=== PATIENT | male | born 1990 | race American Indian/Alaskan Native ===

== ENCOUNTER 2017-11-04 13:47 | Emergency (ER) | payer OTHER ==
[2017-11-04] MEDS ORDERED: FIORICET PO ONE (16:04)
--- NOTE | 2017-11-04 16:10 | Emergency Department Report ---
HPI - General Chief Complaint: Pain General Time Seen by Provider: 11/04/17 15:44 - HPI HPI: Patient is a 27-year-old male presents to ED complaining of generalized body aches and headaches started today this morning. Patient states he woke up shortly after headache. He denies any recent sick contacts or travel outside the country in the past. He denies cough, dizziness, stiff or neck pain, nausea/ vomiting/abdominal pains as chest pain or shortness of breath. Past medical history positive for HIV patient denies taking any medications. ED Past Medical Hx - Past Medical History Hx HIV: Yes - Social History Smoking Status: Current Some Day Smoker Substance Use Type: Alcohol - Medications Home Medications: Home Medications Medication Instructions Recorded Confirmed Last Taken Type Pseudoephedrine ER [Sudafed 12 Hr] 120 mg PO BID #20 tablet.er 11/04/17 Unknown Rx ED Review of Systems ROS: Stated complaint: BODY SORE/FEVER/CHILLS Other details as noted in HPI Constitutional: chills, fever Eyes: denies: eye pain, eye discharge, vision change ENT: denies: ear pain, throat pain Respiratory: denies: cough, shortness of breath, wheezing Cardiovascular: denies: chest pain, palpitations Endocrine: no symptoms reported Gastrointestinal: denies: abdominal pain, nausea, vomiting, diarrhea Genitourinary: denies: urgency, dysuria, frequency, hematuria Musculoskeletal: myalgia. denies: back pain, joint swelling, arthralgia Skin: denies: rash, lesions Neurological: denies: headache, weakness, paresthesias Psychiatric: denies: anxiety, depression Hematological/Lymphatic: denies: easy bleeding, easy bruising Physical Exam - Physical Exam Vital Signs: Vital Signs 11/04/17 14:11 Temperature 100.5 F H Pulse Rate 110 H Respiratory 18 Rate Blood Pressure 119/69 O2 Sat by Pulse 98 Oximetry Physical Exam: GENERAL: Alert and oriented x3, no apparent distress, Normal Gait, atraumatic. HEAD: Head is normocephalic and a-traumatic. EYES: Extra ocular muscles are intact. Pupils are equal, round, and reactive to light and accommodation. MOUTH:Mouth is well hydrated and without lesions. Tonsils nonerythematous or swollen, Uvula midline, Tongue not elevated. Mucous membranes are moist. Posterior pharynx clear, no exudate or lesions. Patent airways. NECK: Supple. Non edematous. No lymphadenopathy or thyromegaly. No C-spine tenderness. Full range of motion LUNGS: Symetrical with respiration, No wheezing, no rales or crackles, CTAB. HEART: S1, S2 present, regular rate and rhythm without murmur, no rubs, no gallops. Non tender to palpation BACK: Full range of motion, no spinal tenderness, nontender to palpation. EXTREMITIES/MUSCULOSKELETAL: No cyanosis, clubbing, rash, lesions or edema. Full ROM bilaterally. UE/LE Pulses 2+ bilaterally. NEUROLOGIC: The patient is cooperative with no focal neurologic deficits. Cranial nerves II through XII are grossly intact. Normal speech. Normal sensation in bilateral upper and lower extremities, No loss of sensation, SKIN: Warm and dry, No lesions, No ulceration or induration present. ED Course Vital Signs 11/04/17 14:11 Temperature 100.5 F H Pulse Rate 110 H Respiratory 18 Rate Blood Pressure 119/69 O2 Sat by Pulse 98 Oximetry ED Medical Decision Making - Lab Data Vital Signs 11/04/17 11/04/17 11/04/17 14:11 17:30 17:49 Temperature 100.5 F H 99.7 F H 99.7 F H Pulse Rate 110 H 98 H 98 H Respiratory 18 16 16 Rate Blood Pressure 119/69 Blood Pressure 103/59 106/64 [Left] Blood Pressure 106/64 103/59 [Right] O2 Sat by Pulse 98 95 95 Oximetry - Radiology Data Radiology results: report reviewed, image reviewed FINAL REPORT EXAM: XR CHEST ROUTINE 2V HISTORY: fever/malaise TECHNIQUE: Frontal and lateral views of the chest. PRIORS: None currently available. FINDINGS: Cardiac silhouette is within normal limits. There is no effusion. There is no pneumothorax. There is no consolidation. There are no suspicious osseous lesions. IMPRESSION: No acute cardiopulmonary findings. Transcribed By: TYM Dictated By: JEFF AMEZCUA MD Electronically Authenticated By: JEFF AMEZCUA MD Signed Date/Time: 11/04/17 9516 - Medical Decision Making 27-year-old male presents with with sinusitis/sinus headache Urinalysis negative, chest x-ray negative Patient receives fioricet for headache in ED He reports feeling better. Patient had no neuro deficit. Vital signs normalized, fever reduced pulse rate reduced prior to discharge Discussed the patient will follow up with the primary care physici in 3-5 days Discussed with patient symptoms worsen or new symptoms arise to return to ED immediately an Critical care attestation.: If time is entered above; I have spent that time in minutes in the direct care of this critically ill patient, excluding procedure time. ED Disposition Clinical Impression: Sinus headache Disposition: DC-01 TO HOME OR SELFCARE Is pt being admited?: No Does the pt Need Aspirin: No Condition: Stable Instructions: Sinusitis (ED), Acute Headache (ED) Additional Instructions: Make sure to follow up with the primary care physician as discussed. Take all your medications as you've been prescribed. If you have any worsening symptoms or develop new symptoms please return to ED immediately. Prescriptions: Pseudoephedrine ER [Sudafed 12 Hr] 120 mg PO BID #20 tablet.er Referrals: PRIMARY CARE, [Primary Care Provider] - 3-5 Days [facility] [Outside] - 3-5 Days [facility] [Outside] - 3-5 Days [facility] [Outside] - 3-5 Days Forms: Accompanied Note, Work/School Release Form(ED) Time of Disposition: 17:31
--- NOTE | 2017-11-04 16:53 | XRay Report ---
FINAL REPORT EXAM: XR CHEST ROUTINE 2V HISTORY: fever/malaise TECHNIQUE: Frontal and lateral views of the chest. PRIORS: None currently available. FINDINGS: Cardiac silhouette is within normal limits. There is no effusion. There is no pneumothorax. There is no consolidation. There are no suspicious osseous lesions. IMPRESSION: No acute cardiopulmonary findings.
[2017-11-04 17:09] LABS: Bilirubin,Urine NEG (Negative); Blood,Urine NEG (Negative); Color,Urine Yellow (Yellow); Mucus,Urine 1+ /HPF; Protein,Urine <15 mg/dL mg/dL (Negative)
[2017-11-04 17:51] VITALS: BP 106/64
== END 2017-11-04 17:49 | disposition home or self-care (01) ==
LOC: ED 13:47
DX: R51 Headache (principal); M79.1 Myalgia; F17.200 Nicotine dependence, unspecified, uncomplicated
CPT/HCPCS: 71046; 81001